=== PATIENT | female | born 1970 | race Caucasian/White ===

== ENCOUNTER 2016-10-16 21:23 | Emergency (ER) | payer MEDICAID ==
[~2016-10-16] VITALS: Ht 165.1 cm; Wt 71.7 kg
[2016-10-16 21:48] VITALS: BP 136/76
--- NOTE | 2016-10-16 23:16 | NUR ---
PT TAKEN TO BED 4
--- NOTE | 2016-10-16 23:28 | NUR ---
PATIENT PRESENTS TO ED WITH NECK PAIN . PT STATES PAIN IS RADIATING TO LEFT SHOULDER . DENIES N/V/D; SKIN IS PINK/WARM/DRY; AAOX4 WITH EVEN AND STEADY GAIT; LUNGS CLEAR BL; HR EVEN AND REGULAR; PT DENIES ANY FEVER, CP, SOB, OR COUGH AT THIS TIME; PATIENT STATES PAIN OF 8/10 AT THIS TIME; VSS; PATIENT POSITIONED FOR COMFORT; HOB ELEVATED; BEDRAILS UP X2; BED DOWN. ER MD MADE AWARE OF PT STATUS.
--- NOTE | 2016-10-16 23:30 | NUR ---
Pupils equal and reactive to light bilaterally. No facial droop noted. No smile deficit noted. Speech normal for patient. Patient is alert and oriented to person, place, time and event. 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 Bilateral foot push equal.
--- NOTE | 2016-10-17 00:05 | NUR ---
Dr. Figueroa evaluating patient at bedside.
[2016-10-17] MEDS ORDERED: KETOROLAC 60 MG/2 ML VIAL IM ONE (00:10)
[2016-10-17 01:00] VITALS: BP 123/79
--- NOTE | 2016-10-17 01:00 | NUR ---
PER DR. MATT, Patient discharged with v/s stable. Written and verbal after care instructions given and explained. Patient alert, oriented and verbalized understanding of instructions. Ambulatory with steady gait. All questions addressed prior to discharge. ID band removed. Patient advised to follow up with PMD. Rx of NAPROSYN AND SOMA given. Patient educated on indication of medication including possible reaction and side effects. Opportunity to ask questions provided and answered. DC NOTE ONLY
== END 2016-10-17 01:00 | disposition home or self-care (01) ==
LOC: MED 21:30
PROC: 3E033GC Introduction of Other Therapeutic Substance into Peripheral Vein, Percutaneous Approach (ICD-10-PCS; principal; 2016-10-17)
PROC: 4A02X4Z Measurement of Cardiac Electrical Activity, External Approach (ICD-10-PCS; 2016-10-17)
DX: M25.512 Pain in left shoulder (principal); R03.0 Elevated blood-pressure reading, without diagnosis of hypertension
CPT/HCPCS: 73030; 93005; 96372; 99284; J1885

== ENCOUNTER 2017-06-01 11:37 | Emergency (ER) | payer MEDICAID ==
[~2017-06-01] VITALS: Ht 160 cm; Wt 67.6 kg
[2017-06-01 12:00] VITALS: BP 122/60
[2017-06-01] MEDS ORDERED: MECLIZINE 25 MG TAB PO ONE (14:15)
[2017-06-01 15:13] LABS: APPEARANCE,URINE CLEAR (CLEAR); BILIRUBIN,URINE 2+ (NEGATIVE); BLOOD, URINE TRACE-L (NEGATIVE); LEUKOCYTE ESTERASE ,URINE NEGATIVE (NEGATIVE); NITRITE, URINE NEGATIVE (NEGATIVE); UGLUCOSE NEGATIVE (NEGATIVE)
[2017-06-01 15:15] LABS: COLOR,URINE STRAW (YELLOW)
[2017-06-01 15:20] VITALS: BP 104/59
[2017-06-01 15:27] LABS: RBC,URINE 0-5 (RARE) /HPF (0-5); WBC,URINE 0-5 (RARE) /HPF (0-5)
== END 2017-06-01 15:21 | disposition home or self-care (01) ==
LOC: MED 11:37
DX: H81.13 Benign paroxysmal vertigo, bilateral (principal)
CPT/HCPCS: 81001; 81025; 82948; 99283; J8597

== ENCOUNTER 2020-07-16 10:01 | Emergency (ER) | payer MEDICAID ==
[~2020-07-16] VITALS: Ht 162.6 cm; Wt 65.8 kg
[2020-07-16 10:15] VITALS: BP 145/74
[2020-07-16 11:48] VITALS: BP 145/74
--- NOTE | 2020-07-16 11:48 | NUR ---
Patient discharged with v/s stable. Written and verbal after care instructions given and explained. Patient alert, oriented and verbalized understanding of instructions. Ambulatory with steady gait. All questions addressed prior to discharge. ID band removed. Patient advised to follow up with PMD. Rx of Prednisone 20mg, Motrin 600mg given. Patient educated on indication of medication including possible reaction and side effects. Opportunity to ask questions provided and answered.
== END 2020-07-16 11:48 | disposition home or self-care (01) ==
LOC: MED 10:01
DX: R07.89 Other chest pain (principal); R05 Cough
CPT/HCPCS: 99283

== ENCOUNTER 2021-10-01 10:48 | Emergency (ER) | payer MEDICAID ==
[~2021-10-01] VITALS: Ht 157.7 cm; Wt 79.9 kg
[2021-10-01 10:58] VITALS: BP 122/64
--- NOTE | 2021-10-01 11:13 | NUR ---
PATIENT PRESENTS TO ED WITH LEFT THROBBING TRAP PAIN AND SWELLING X 5 DAYS, PAIN RADIATES TO HEAD AND CAUSES DIZZINESS. PT STATES SHE USES HER HANDS IN A TWISTING MANNER AT WORK AND THINKS SHE OVER USED HER ARM. DENIES N/V; SKIN IS PINK/WARM/DRY; AAOX4 WITH EVEN AND STEADY GAIT; PATIENT STATES PAIN OF 5/10 AT THIS TIME; VSS; PATIENT POSITIONED FOR COMFORT; HOB ELEVATED; BEDRAILS UP X2; BED DOWN. ER MD MADE AWARE OF PT STATUS.
--- NOTE | 2021-10-01 11:23 | NUR ---
DR PARKER AT BEDSIDE EXAMINING PT
[2021-10-01] MEDS ORDERED: LIDOCAINE MPF 1% 10 MG/ML VIAL INJ ONE ×2 (11:30→11:40)
[2021-10-01 12:31] VITALS: BP 122/64
--- NOTE | 2021-10-01 12:31 | NUR ---
Patient discharged with v/s stable. Written and verbal after care instructions given and explained. Patient alert, oriented and verbalized understanding of instructions. Ambulatory with steady gait. All questions addressed prior to discharge. ID band removed. Patient advised to follow up with PMD. Opportunity to ask questions provided and answered.
== END 2021-10-01 12:31 | disposition home or self-care (01) ==
LOC: MED 10:48
DX: M62.830 Muscle spasm of back (principal); M62.838 Other muscle spasm
CPT/HCPCS: 20552; 99284; J2001

== ENCOUNTER 2022-05-02 12:30 | Emergency (ER) | payer MEDICAID, OTHER ==
[~2022-05-02] VITALS: Ht 152.4 cm; Wt 81.2 kg
[2022-05-02 12:57] VITALS: BP 122/73
[2022-05-02 13:38] LABS: BASOPHILS % (AUTO) 0.6 % (0.0-2.0); EOSINOPHILS # (AUTO) 0.1 K/uL (0-0.4); EOSINOPHILS % (AUTO) 1.2 % (0.0-4.0); HEMOGLOBIN 10.8 g/dL (12.0-16.0); LYMPHOCYTES # (AUTO) 1.8 K/uL (2.5-16.5); LYMPHOCYTES % (AUTO) 22.4 % (20.5-51.1); MEAN CORPUSCULAR HEMOGLOBIN 31 pg (27-31); MEAN CORPUSCULAR HGB CONC 34 g/dL (33-37); MEAN CORPUSCULAR VOLUME 91.4 fL (80-94); MONOCYTES # (AUTO) 0.8 K/uL (0.8-1.0); MONOCYTES % (AUTO) 9.7 % (1.7-9.3); NEUTROPHILS # (AUTO) 5.3 K/uL (1.8-7.7); NEUTROPHILS % (AUTO) 66.1 % (42.2-75.2); PLATELET COUNT (AUTO) 150 K/uL (140-450); RED BLOOD CELL COUNT(AUTO) 3.51 MIL/uL (4.20-5.40); RED CELL DISTRIBUTION WIDTH 13.6 % (11.6-13.7); WHITE BLOOD COUNT (AUTO) 8.1 K/uL (4.8-10.8)
[2022-05-02] MEDS ORDERED: CEPH-588 PO (15:13)
[2022-05-02] MEDS ORDERED: IBUP-2213 PO (15:13)
[2022-05-02 15:28] VITALS: BP 109/56
== END 2022-05-02 15:26 | disposition home or self-care (01) ==
LOC: MED 12:30
DX: N93.8 Other specified abnormal uterine and vaginal bleeding (principal); N30.00 Acute cystitis without hematuria; Z79.2 Long term (current) use of antibiotics; Z79.1 Long term (current) use of non-steroidal anti-inflammatories (NSAID)
CPT/HCPCS: 36415; 81002; 85025; 99283